=== PATIENT | male | born 1995 | race Caucasian/White ===

== ENCOUNTER 2019-04-02 15:06 | Emergency (ER) | payer SELFPAY ==
[~2019-04-02] VITALS: Ht 180.3 cm; Wt 63.5 kg
[2019-04-02] MEDS ORDERED: IV NS 0.9% 1,000 ML BAG IV ONE (16:00)
[2019-04-02] MEDS ORDERED: ONDANSETRON HCL/PF 4 MG/2 ML VIAL IVP ONE (16:00)
--- NOTE | 2019-04-02 16:00 | NUR ---
ADDENDUM: Intravenous End Time Documentation:Normal saline 1 liter (IV-WO) : start time: 1600; end time: 1700 : IV site:LAC # 20 Port # 1
[2019-04-02] MEDS ORDERED: ONDANSETRON HCL/PF 4 MG/2 ML VIAL ONE (16:05)
--- NOTE | 2019-04-02 16:29 | NUR ---
1600: Patient S/E by PA, with order of IVF, and Zofran. 1620: Able to place LAC 20 PIV, started on IVF NS bolus and Zofran given as ordered. VSS at this time.
[2019-04-02] MEDS ORDERED: DEXAMETHASONE SOD PHOSPHATE 4 MG/ML VIAL IM ONE (18:00)
[2019-04-02] MEDS ORDERED: DEXAMETHASONE SOD PHOSPHATE 10 MG/ML VIAL ONE (18:03)
--- NOTE | 2019-04-02 18:13 | NUR ---
IV removed. Catheter intact and site benign. Pressure and 4x4 applied to site. No bleeding noted. Patient discharged to home in stable condition. Written and verbal after care instructions given. Patient verbalizes understanding of instruction.
[2019-04-02 18:21] VITALS: BP 145/91
== END 2019-04-02 18:23 | disposition home or self-care (01) ==
LOC: ER 15:06
DX: J02.9 Acute pharyngitis, unspecified (principal); H92.02 Otalgia, left ear
CPT/HCPCS: 87070; 87804 ×2; 87880; 96361; 96372; 96374; 99283; J1100; J2405; J7030; 86403-TC; 87400